=== PATIENT | male | born 1930 | race Caucasian/White ===

== ENCOUNTER 2017-10-25 10:19 | Observation (INO) | payer MEDICARE, OTHER ==
[2017-10-25] MEDS ORDERED: Sodium Chloride 0.9% 10 ML Syringe FLUSH PRN (10:28)
[2017-10-25 11:23] LABS: CHLORIDE,CL 108 mmol/L (98-107); SODIUM,NA 143 mmol/L (136-145)
[2017-10-25] MEDS ORDERED: cefTRIAXone 2 GM Vial IVPUSH ONE (11:27)
[2017-10-25] MEDS ORDERED: Azithromycin 500 MG in Sodium Chloride 0.9% 250 ML IV ONE (11:27)
--- NOTE | 2017-10-25 12:53 | EDM.PDOC ---
ED HPI GENERAL MEDICAL PROBLEM - General Chief Complaint: General Time Seen by Provider: 10/25/17 10:19 Source of Information: Reports: Patient History Limitations: Reports: No Limitations - History of Present Illness INITIAL COMMENTS - FREE TEXT/NARRATIVE: Pt. presents to ER with 1 day history of confusion, weakness, and increased tearfulness. He apparently was beginning to experience these symptoms somewhat last evening, but the symptoms were much more pronounced this AM. He was dropping things at breakfast and was more emotional than normal. He has not been experiencing any fever or chills. He has a history of COPD but denies any increased dyspnea. Onset Date: 10/24/17 Location: Reports: Generalized - Related Data Allergies Allergy/AdvReac Type Severity Reaction Status Date / Time No Known Drug Allergies Allergy Other Verified 10/25/17 10:36 Home Meds: Home Meds Furosemide [Lasix] 20 mg PO DAILY 05/15/14 [History] Meclizine [Antivert] 25 mg PO TID PRN 05/15/14 [History] Multivitamin [Daily Multiple Vitamin] 1 tab PO DAILY 05/15/14 [History] Simvastatin [Zocor] 20 mg PO BEDTIME 05/15/14 [History] Tiotropium [Spiriva HandiHaler] 18 mcg INH DAILY 05/15/14 [History] Acetaminophen/HYDROcodone [[place] 325-5 MG] 1 tab PO Q4HR PRN #45 tablet [Rx] Metoprolol Tartrate [Lopressor] 25 mg PO Q12HR #60 tablet 05/23/14 [Rx] Rivaroxaban [Xarelto] 20 mg PO DAILY #30 tablet 05/23/14 [Rx] Aspirin 81 mg PO DAILY 10/25/17 [History] Loratadine [Claritin] 10 mg PO DAILY 10/25/17 [History] Past Medical History Cardiovascular History: Reports: Afib, High Cholesterol Respiratory History: Reports: COPD Gastrointestinal History: Reports: Diverticulosis Musculoskeletal History: Reports: Arthritis, Osteoarthritis - Past Surgical History GI Surgical History: Reports: Hernia Repair/Other Social & Family History - Tobacco Use Smoking Status *Q: Unknown Ever Smoked - Recreational Drug Use Recreational Drug Use: No ED ROS GENERAL - Review of Systems Review Of Systems: See Below Constitutional: Reports: Malaise, Fatigue HEENT: Reports: No Symptoms Respiratory: Reports: Shortness of Breath, Cough Cardiovascular: Reports: No Symptoms Endocrine: Reports: No Symptoms GI/Abdominal: Reports: No Symptoms : Reports: No Symptoms Musculoskeletal: Reports: No Symptoms Skin: Reports: No Symptoms Neurological: Reports: No Symptoms, Confusion Psychiatric: Reports: No Symptoms Hematologic/Lymphatic: Reports: No Symptoms Immunologic: Reports: No Symptoms ED EXAM, GENERAL - Physical Exam Exam: See Below General Appearance: Alert, WD/WN, No Apparent Distress Eye Exam: Bilateral Eye: EOMI, Normal Fundi, Normal Inspection, PERRL Ears: Normal External Exam, Normal Canal, Hearing Grossly Normal, Normal TMs Nose: Normal Inspection, Normal Mucosa, No Blood Throat/Mouth: Normal Inspection, Normal Lips, Normal Teeth, Normal Gums, Normal Oropharynx, Normal Voice, No Airway Compromise Respiratory/Chest: No Respiratory Distress, Chest Non-Tender, Decreased Breath Sounds, Crackles, Rhonchi Cardiovascular: Normal Peripheral Pulses, Regular Rate, Rhythm, No Edema, No JVD. No: Diastolic Murmur Peripheral Pulses: 3+: Radial (L), Radial (R) GI/Abdominal: Normal Bowel Sounds, Soft, Non-Tender, No Organomegaly, No Distention, No Abnormal Bruit, No Mass (Male) Exam: Deferred Rectal (Males) Exam: Deferred Back Exam: Normal Inspection, Full Range of Motion, NT Extremities: Normal Inspection, Normal Range of Motion, Non-Tender, Normal Capillary Refill, No Pedal Edema Neurological: Alert, Oriented, CN II-XII Intact, Normal Cognition, Normal Gait, Normal Reflexes, No Motor/Sensory Deficits, Slow to Respond Psychiatric: Normal Affect, Normal Mood Skin Exam: Warm, Dry, Intact, Normal Color, No Rash Lymphatic: No Adenopathy EKG INTERPRETATION Rhythm: NSR [place]: Normal P-Wave: Present QRS: Normal ST-T: Normal QT: Normal Course - Vital Signs Last Recorded V/S: Last Vital Signs Temp 36.2 C 10/25/17 10:19 Pulse 81 10/25/17 11:35 Resp 18 10/25/17 11:35 BP 136/73 10/25/17 11:35 Pulse Ox 90 L 10/25/17 11:35 - Orders/Labs/Meds Orders: Active Orders 24 hr Category Date Time Status Patient Status [ADT] Routine ADT 10/25/17 11:41 Active EKG Documentation Completion [RC] STAT Care 10/25/17 10:28 Active Chest 1V Frontal [CR] Stat Exams 10/25/17 10:28 Taken Head wo Cont [CT] Stat Exams 10/25/17 10:28 Taken UA W/MICROSCOPIC [URIN] Stat Lab 10/25/17 10:27 Ordered Sodium Chloride 0.9% [Saline Flush] Med 10/25/17 10:28 Active 10 ml FLUSH ASDIRECTED PRN Peripheral IV Insertion Adult [OM.PC] Routine Oth 10/25/17 10:28 Ordered Medication Orders Ceftriaxone Sodium (Rocephin) 1 gm IVPUSH DAILY@1100 [facility] Enoxaparin Sodium (Lovenox) 40 mg SUBCUT DAILY [facility] Azithromycin 500 mg/ Sodium (Chloride) 250 mls @ 250 mls/hr IV DAILY@1100 [facility] Potassium Chloride/Dextrose/Sod Cl (D5 1/2 Ns W/ 20 Meq/L Kcl) 1,000 mls @ 75 mls/hr IV ASDIRECTED [facility] Sodium Chloride (Saline Flush) 10 ml FLUSH ASDIRECTED PRN PRN Reason: Keep Vein Open Labs: Laboratory Tests 10/25/17 10/25/17 10/25/17 Range/Units 10:42 10:42 10:42 WBC 7.6 (4.0-10.0) x10^3/uL RBC 5.05 (4.5-6.0) x10^6/uL Hgb 15.2 D (14.0-18.0) g/dL Hct 45.6 (40.0-52.0) % MCV 90.3 (78.0-93.0) fL MCH 30.1 (26.0-32.0) pg MCHC 33.3 (32.0-36.0) g/dL RDW Coeff of German 14.7 (10.0-15.0) % Plt Count 205 D (130-400) x10^3/uL Neut % (Auto) 60.0 (50.0-80.0) % Lymph % (Auto) 24.0 L (25.0-50.0) % [place] % (Auto) 11.4 H (2.0-11.0) % Eos % (Auto) 4.3 H (0.0-4.0) % Baso % (Auto) 0.3 (0.2-1.2) % PT 10.6 (9.8-11.8) SEC INR 1.0 L (2.0-3.5) Sodium 143 (136-145) mmol/L Potassium 4.1 (3.5-5.1) mmol/L Chloride 108 H (98-107) mmol/L Carbon Dioxide 22 (21-32) mmol/L BUN 18 (7-18) mg/dL Creatinine 1.2 (0.70-1.30) mg/dL Est Cr Clr Drug Dosing TNP Estimated GFR (MDRD) 57 Glucose 94 (74-106) mg/dL Calcium 8.8 (8.5-10.1) mg/dL Corrected Calcium 8.88 (8.5-10.1) mg/dL Total Bilirubin 0.6 (0.2-1.0) mg/dL AST 19 (15-37) U/L ALT 20 (16-63) U/L Alkaline Phosphatase 101 (46-116) U/L Troponin I < 0.017 (<=0.056) ng/mL C-Reactive Protein 0.7 (<=0.9) mg/dL NT-Pro-B Natriuret Pep (<=450) pg/mL Total Protein 7.4 (6.4-8.2) g/dL Albumin 3.9 (3.4-5.0) g/dL Globulin 3.5 Albumin/Globulin Ratio 1.11 TSH, Ultra Sensitive 1.946 (0.358-3.74) uIU/mL Ethyl Alcohol < 3 (0-3) mg/dL 10/25/17 Range/Units 10:42 WBC (4.0-10.0) x10^3/uL RBC (4.5-6.0) x10^6/uL Hgb (14.0-18.0) g/dL Hct (40.0-52.0) % MCV (78.0-93.0) fL MCH (26.0-32.0) pg MCHC (32.0-36.0) g/dL RDW Coeff of German (10.0-15.0) % Plt Count (130-400) x10^3/uL Neut % (Auto) (50.0-80.0) % Lymph % (Auto) (25.0-50.0) % [place] % (Auto) (2.0-11.0) % Eos % (Auto) (0.0-4.0) % Baso % (Auto) (0.2-1.2) % PT (9.8-11.8) SEC INR (2.0-3.5) Sodium (136-145) mmol/L Potassium (3.5-5.1) mmol/L Chloride (98-107) mmol/L Carbon Dioxide (21-32) mmol/L BUN (7-18) mg/dL Creatinine (0.70-1.30) mg/dL Est Cr Clr Drug Dosing Estimated GFR (MDRD) Glucose (74-106) mg/dL Calcium (8.5-10.1) mg/dL Corrected Calcium (8.5-10.1) mg/dL Total Bilirubin (0.2-1.0) mg/dL AST (15-37) U/L ALT (16-63) U/L Alkaline Phosphatase (46-116) U/L Troponin I (<=0.056) ng/mL C-Reactive Protein (<=0.9) mg/dL NT-Pro-B Natriuret Pep 70 (<=450) pg/mL Total Protein (6.4-8.2) g/dL Albumin (3.4-5.0) g/dL Globulin Albumin/Globulin Ratio TSH, Ultra Sensitive (0.358-3.74) uIU/mL Ethyl Alcohol (0-3) mg/dL Meds: Medications Generic Name Dose Route Start Last Admin Trade Name Freq PRN Reason Stop Dose Admin Ceftriaxone Sodium 1 gm 10/26/17 11:00 Rocephin IVPUSH DAILY@1100 [facility] Enoxaparin Sodium 40 mg 10/25/17 12:45 Lovenox SUBCUT DAILY [facility] Azithromycin 500 mg/ Sodium 250 mls @ 250 mls/hr 10/26/17 11:00 Chloride IV DAILY@1100 [facility] Potassium Chloride/Dextrose/Sod Cl 1,000 mls @ 75 mls/hr 10/25/17 12:45 D5 1/2 Ns W/ 20 Meq/L Kcl IV ASDIRECTED [facility] Sodium Chloride 10 ml 10/25/17 10:28 Saline Flush FLUSH ASDIRECTED PRN Keep Vein Open Discontinued Medications Generic Name Dose Route Start Last Admin Trade Name Freq PRN Reason Stop Dose Admin Ceftriaxone Sodium 2 gm 10/25/17 11:27 10/25/17 11:52 Rocephin IVPUSH 10/25/17 11:28 2 gm ONETIME ONE Administration Azithromycin 500 mg/ Sodium 250 mls @ 250 mls/hr 10/25/17 11:27 10/25/17 11: 58 Chloride IV 10/25/17 12:26 250 mls/hr ONETIME ONE Administration - Radiology Interpretation Free Text/Narrative:: CT brain negative for acute pathology Portable CXR shows LLL infiltrate Departure - Departure Time of Disposition: 12:10 Disposition: Refer to Observation Clinical Impression: Pneumonia Community acquired pneumonia Qualifiers: Laterality: left Lung location: lower lobe of lung Qualified Code(s): J18.1 - Lobar pneumonia, unspecified organism - Discharge Information - My Orders Last 24 Hours: My Active Orders 10/25/17 10:27 UA W/MICROSCOPIC [URIN] Stat 10/25/17 10:28 EKG Documentation Completion [RC] STAT Chest 1V Frontal [CR] Stat Head wo Cont [CT] Stat Sodium Chloride 0.9% [Saline Flush] 10 ml FLUSH ASDIRECTED PRN Peripheral IV Insertion Adult [OM.PC] Routine 10/25/17 11:41 Patient Status [ADT] Routine - Assessment/Plan Last 24 Hours: My Active Orders 10/25/17 10:27 UA W/MICROSCOPIC [URIN] Stat 10/25/17 10:28 EKG Documentation Completion [RC] STAT Chest 1V Frontal [CR] Stat Head wo Cont [CT] Stat Sodium Chloride 0.9% [Saline Flush] 10 ml FLUSH ASDIRECTED PRN Peripheral IV Insertion Adult [OM.PC] Routine 10/25/17 11:41 Patient Status [ADT] Routine
[2017-10-25] MEDS: D5 1/2 NS w/ 20 mEq/L KCl 1,000 ML IV SCH (13:01)
[2017-10-25] MEDS: Enoxaparin 40 MG/0.4 ML Syringe SUBCUT SCH (13:02)
[2017-10-25] MEDS ORDERED: Simvastatin 20 MG Tab PO SCH (20:00)
[2017-10-26] MEDS ORDERED: methylPREDNISolone Sodium Succinate 125 MG/2 ML SDV IVPUSH ONE (00:29)
[2017-10-26] MEDS: D5 1/2 NS w/ 20 mEq/L KCl 1,000 ML IV SCH (01:00)
[2017-10-26] MEDS ORDERED: Calcium Carbonate 750 MG Tab.Chew PO ONE (01:07)
[2017-10-26] MEDS: Ondansetron 4 MG/2 ML SDV IVPUSH PRN ×2 (01:21→06:38)
[2017-10-26] MEDS ORDERED: Pantoprazole 40 MG Vial IVPUSH ONE (06:25)
[2017-10-26 07:28] LABS: CHLORIDE,CL 107 mmol/L (98-107); SODIUM,NA 142 mmol/L (136-145)
[2017-10-26] MEDS ORDERED: Multivitamin, Stress Formula with Zinc Tab PO SCH (08:00)
[2017-10-26] MEDS ORDERED: Tiotropium Inhaler 18 MCG Inhalation Powder Cap Kit of 5 INH SCH (08:00)
[2017-10-26] MEDS ORDERED: Aspirin 81 MG Tab.EC PO SCH (08:00)
[2017-10-26] MEDS ORDERED: Loratadine 10 MG Tab PO SCH (08:00)
[2017-10-26] MEDS: Enoxaparin 40 MG/0.4 ML Syringe SUBCUT SCH (09:14)
--- NOTE | 2017-10-26 11:23 | PCM.PN ---
- General Info Date of Service: 10/26/17 Admission Dx/Problem (Free Text): left lower lobe pneumonia Functional Status: Reports: Pain Controlled, New Symptoms (nausea and vomiting) - Review of Systems General: Reports: No Symptoms HEENT: Reports: No Symptoms Pulmonary: Reports: Shortness of Breath Cardiovascular: Reports: No Symptoms Gastrointestinal: Reports: Nausea, Vomiting Genitourinary: Reports: No Symptoms Musculoskeletal: Reports: No Symptoms Skin: Reports: No Symptoms Neurological: Reports: No Symptoms Psychiatric: Reports: No Symptoms - Patient Data Vitals - Most Recent: Last Vital Signs Temp 37.2 C 10/26/17 10:00 Pulse 106 H 10/26/17 10:00 Resp 24 H 10/26/17 10:00 BP 154/89 H 10/26/17 10:00 Pulse Ox 90 L 10/26/17 11:11 Weight - Most Recent: 92.215 kg I&O - Last 24 Hours: Intake & Output 10/25/17 10/26/17 10/26/17 22:59 06:59 14:59 Intake Total 1388 1140 0 Output Total 300 325 Balance 1088 1140 -325 Lab Results Last 24 Hours: Laboratory Results - last 24 hr 10/25/17 10/26/17 10/26/17 Range/Units 14:36 07:01 07:01 WBC 8.3 (4.0-10.0) x10^3/uL RBC 5.17 (4.5-6.0) x10^6/uL Hgb 15.6 (14.0-18.0) g/dL Hct 46.4 (40.0-52.0) % MCV 89.7 (78.0-93.0) fL MCH 30.2 (26.0-32.0) pg MCHC 33.6 (32.0-36.0) g/dL RDW Coeff of [place] 14.8 (10.0-15.0) % Plt Count 223 (130-400) x10^3/uL Neut % (Auto) 89.5 H (50.0-80.0) % Lymph % (Auto) 9.9 L (25.0-50.0) % [place] % (Auto) 0.5 L (2.0-11.0) % Eos % (Auto) 0.0 (0.0-4.0) % Baso % (Auto) 0.1 L (0.2-1.2) % Sodium 142 (136-145) mmol/L Potassium 4.2 (3.5-5.1) mmol/L Chloride 107 (98-107) mmol/L Carbon Dioxide 22 (21-32) mmol/L BUN 14 (7-18) mg/dL Creatinine 1.0 (0.70-1.30) mg/dL Est Cr Clr Drug Dosing 56.48 mL/min Estimated GFR (MDRD) > 60 Glucose 176 H (74-106) mg/dL Lactic Acid (0.4-2.0) mmol/L Calcium 9.0 (8.5-10.1) mg/dL Urine Color Yellow (YELLOW) Urine Appearance Clear (CLEAR) Urine pH 5.5 (5.0-8.0) Ur Specific [place] 1.020 Urine Protein Negative (NEGATIVE) mg/dL Urine Glucose (UA) Negative (NEGATIVE) mg/dL Urine Ketones Trace H (NEGATIVE) mg/dL Urine Occult Blood Negative (NEGATIVE) Urine Nitrite Negative (NEGATIVE) Urine Bilirubin Negative (NEGATIVE) Urine Urobilinogen 0.2 (0.2) EU/dL Ur Leukocyte Esterase Small H (NEGATIVE) Urine RBC Not seen (NOT SEEN) /HPF Urine WBC 0-5 (NOT SEEN) /HPF Ur Squamous Epith Cells Not seen (NEGATIVE) /HPF Amorphous Sediment Not seen Urine Mucus Not seen (NEGATIVE) /LPF 10/26/17 Range/Units 09:31 WBC (4.0-10.0) x10^3/uL RBC (4.5-6.0) x10^6/uL Hgb (14.0-18.0) g/dL Hct (40.0-52.0) % MCV (78.0-93.0) fL MCH (26.0-32.0) pg MCHC (32.0-36.0) g/dL RDW Coeff of [place] (10.0-15.0) % Plt Count (130-400) x10^3/uL Neut % (Auto) (50.0-80.0) % Lymph % (Auto) (25.0-50.0) % [place] % (Auto) (2.0-11.0) % Eos % (Auto) (0.0-4.0) % Baso % (Auto) (0.2-1.2) % Sodium (136-145) mmol/L Potassium (3.5-5.1) mmol/L Chloride (98-107) mmol/L Carbon Dioxide (21-32) mmol/L BUN (7-18) mg/dL Creatinine (0.70-1.30) mg/dL Est Cr Clr Drug Dosing mL/min Estimated GFR (MDRD) Glucose (74-106) mg/dL Lactic Acid 1.1 (0.4-2.0) mmol/L Calcium (8.5-10.1) mg/dL Urine Color (YELLOW) Urine Appearance (CLEAR) Urine pH (5.0-8.0) Ur Specific [place] Urine Protein (NEGATIVE) mg/dL Urine Glucose (UA) (NEGATIVE) mg/dL Urine Ketones (NEGATIVE) mg/dL Urine Occult Blood (NEGATIVE) Urine Nitrite (NEGATIVE) Urine Bilirubin (NEGATIVE) Urine Urobilinogen (0.2) EU/dL Ur Leukocyte Esterase (NEGATIVE) Urine RBC (NOT SEEN) /HPF Urine WBC (NOT SEEN) /HPF Ur Squamous Epith Cells (NEGATIVE) /HPF Amorphous Sediment Urine Mucus (NEGATIVE) /LPF Med Orders - Current: Current Medications Aspirin (Halfprin) 81 mg PO DAILY [facility] Last Admin: 10/26/17 09:13 Dose: Not Given Ceftriaxone Sodium (Rocephin) 1 gm IVPUSH DAILY@1100 [facility] Enoxaparin Sodium (Lovenox) 40 mg SUBCUT DAILY [facility] Last Admin: 10/26/17 09:14 Dose: Not Given Azithromycin 500 mg/ Sodium (Chloride) 250 mls @ 250 mls/hr IV DAILY@1100 [facility] Potassium Chloride/Dextrose/Sod Cl (D5 1/2 Ns W/ 20 Meq/L Kcl) 1,000 mls @ 75 mls/hr IV ASDIRECTED [facility] Last Admin: 10/26/17 01:00 Dose: 75 mls/hr Loratadine (Claritin) 10 mg PO DAILY [facility] Last Admin: 10/26/17 09:13 Dose: Not Given Ondansetron HCl (Zofran) 4 mg IVPUSH Q8H PRN PRN Reason: Nausea Last Admin: 10/26/17 06:38 Dose: 4 mg Simvastatin (Zocor) 20 mg PO BEDTIME [facility] Last Admin: 10/25/17 19:54 Dose: 20 mg Sodium Chloride (Saline Flush) 10 ml FLUSH ASDIRECTED PRN PRN Reason: Keep Vein Open Tiotropium [place] (Spiriva Handihaler) 18 mcg INH DAILY [facility] Last Admin: 10/26/17 09:26 Dose: Not Given Vitamin B Complex/Vit C/Vit E/Zinc (Stress Formula With Zinc) 1 tab PO DAILY [facility] Last Admin: 10/26/17 09:14 Dose: Not Given Discontinued Medications Calcium Carbonate/Glycine (Tums Extra Strength) 750 mg PO ONETIME ONE Stop: 10/26/17 01:08 Last Admin: 10/26/17 01:21 Dose: 750 mg Ceftriaxone Sodium (Rocephin) 2 gm IVPUSH ONETIME ONE Stop: 10/25/17 11:28 Last Admin: 10/25/17 11:52 Dose: 2 gm Azithromycin 500 mg/ Sodium (Chloride) 250 mls @ 250 mls/hr IV ONETIME ONE Stop: 10/25/17 12:26 Last Admin: 10/25/17 11:58 Dose: 250 mls/hr Methylprednisolone Sodium Succinate (Solu-Medrol) 125 mg IVPUSH ONETIME ONE Stop: 10/26/17 00:30 Last Admin: 10/26/17 01:00 Dose: 125 mg Pantoprazole Sodium (Protonix Iv) 40 mg IVPUSH ONETIME ONE Stop: 10/26/17 06:26 Last Admin: 10/26/17 06:39 Dose: 40 mg - Exam Quality Assessment: Supplemental Oxygen General: Alert, Oriented, Cooperative, No Acute Distress HEENT: Pupils Equal Neck: Supple Lungs: Decreased Breath Sounds, Other (left lower lobe rales) GI/Abdominal Exam: Normal Bowel Sounds, Non-Tender, No Organomegaly, No Distention, No Mass. No: Soft (firm) Extremities: Normal Inspection, Normal Range of Motion, Non-Tender, No Pedal Edema, Normal Capillary Refill Peripheral Pulses: 2+: Posterior Tibial (L), Posterior Tibial (R), Dorsalis Pedis (L), Dorsalis Pedis (R) Skin: Warm, Dry, Intact Neurological: No New Focal Deficit Psy/Mental Status: Alert, Normal Affect, Normal Mood - Problem List & Annotations (1) GI bleeding SNOMED Code(s): 84680830 Code(s): K92.2 - GASTROINTESTINAL HEMORRHAGE, UNSPECIFIED Status: Acute Priority: Medium Current Visit: Yes Qualifiers: GI bleed type/associated pathology: unspecified gastrointestinal hemorrhage type Qualified Code(s): K92.2 - Gastrointestinal hemorrhage, unspecified (2) Community acquired pneumonia SNOMED Code(s): 678800843 Code(s): J18.9 - PNEUMONIA, UNSPECIFIED ORGANISM Status: Acute Priority: Medium Current Visit: Yes Qualifiers: Laterality: left Lung location: lower lobe of lung Qualified Code(s): J18.1 - Lobar pneumonia, unspecified organism - Problem List Review Problem List Initiated/Reviewed/Updated: Yes - My Orders Last 24 Hours: My Active Orders 10/26/17 01:07 Ondansetron [Zofran] 4 mg IVPUSH Q8H PRN - Plan Plan:: Discussion held with Dr. Reddy, hospitalist at [facility] in [place]. She has accepted the patient and we await EMS transportation. Room 838
[2017-10-26] MEDS: cefTRIAXone 1 GM Vial IVPUSH SCH ×2 (11:25→11:39)
[2017-10-26] MEDS: Azithromycin 500 MG in Sodium Chloride 0.9% 250 ML IV SCH ×2 (11:26→11:40)
--- NOTE | 2017-10-26 11:29 | PCM.DCSUM1 ---
Discharge Summary - Hospital Course HPI Initial Comments: Initially seen by DAYA Paredes for complaints of confusion, weakness and found to have left lower lobe pneumonia. Was admitted yesterday afternoon. Normal white count, lactic acid normal, CRP normal. Hemoglobin normal levels. 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 He did not use his call light and was found to have vomited on himself. His next emesis was tested for occult blood and was positive. Coffee ground emesis has happened on several occasions this morning. Protonix and zofran have been given IV. - Discharge Data Discharge Date: 10/26/17 Discharge Disposition: DC/Tfer to [facility] Condition: Good - Discharge Diagnosis/Problem(s) (1) GI bleeding SNOMED Code(s): 45667687 ICD Code: K92.2 - GASTROINTESTINAL HEMORRHAGE, UNSPECIFIED Status: Acute Priority: Medium Current Visit: Yes Qualifiers: GI bleed type/associated pathology: unspecified gastrointestinal hemorrhage type Qualified Code(s): K92.2 - Gastrointestinal hemorrhage, unspecified (2) Community acquired pneumonia SNOMED Code(s): 143583206 ICD Code: J18.9 - PNEUMONIA, UNSPECIFIED ORGANISM Status: Acute Priority : Medium Current Visit: Yes Qualifiers: Laterality: left Lung location: lower lobe of lung Qualified Code(s): J18.1 - Lobar pneumonia, unspecified organism - Discharge Plan Home Medications: Home Meds Multivitamin [Daily Multiple Vitamin] 1 tab PO DAILY 05/15/14 [History] Simvastatin [Zocor] 20 mg PO BEDTIME 05/15/14 [History] Tiotropium [Spiriva HandiHaler] 18 mcg INH DAILY 05/15/14 [History] Aspirin [Low Dose Aspirin EC] 81 mg PO DAILY 10/25/17 [History] Loratadine [Claritin] 10 mg PO DAILY 10/25/17 [History] Forms: ED Department Discharge, Interfacility Transfer EMTALA Referrals: Walter Mackey MD [Primary Care Provider] - - Discharge Summary/Plan Comment DC Time >30 min.: Yes Discharge Summary/Plan Comment: Transfer to [facility] for further investigation into the bloody emesis. - Patient Data Vitals - Most Recent: Last Vital Signs Temp 37.2 C 10/26/17 10:00 Pulse 106 H 10/26/17 10:00 Resp 24 H 10/26/17 10:00 BP 154/89 H 10/26/17 10:00 Pulse Ox 90 L 10/26/17 11:11 Weight - Most Recent: 92.215 kg I&O - Last 24 hours: Intake & Output 10/25/17 10/26/17 10/26/17 22:59 06:59 14:59 Intake Total 1388 1140 0 Output Total 300 325 Balance 1088 1140 -325 Lab Results - Last 24 hrs: Laboratory Results - last 24 hr 10/25/17 10/26/17 10/26/17 Range/Units 14:36 07:01 07:01 WBC 8.3 (4.0-10.0) x10^3/uL RBC 5.17 (4.5-6.0) x10^6/uL Hgb 15.6 (14.0-18.0) g/dL Hct 46.4 (40.0-52.0) % MCV 89.7 (78.0-93.0) fL MCH 30.2 (26.0-32.0) pg MCHC 33.6 (32.0-36.0) g/dL RDW Coeff of German 14.8 (10.0-15.0) % Plt Count 223 (130-400) x10^3/uL Neut % (Auto) 89.5 H (50.0-80.0) % Lymph % (Auto) 9.9 L (25.0-50.0) % [place] % (Auto) 0.5 L (2.0-11.0) % Eos % (Auto) 0.0 (0.0-4.0) % Baso % (Auto) 0.1 L (0.2-1.2) % Sodium 142 (136-145) mmol/L Potassium 4.2 (3.5-5.1) mmol/L Chloride 107 (98-107) mmol/L Carbon Dioxide 22 (21-32) mmol/L BUN 14 (7-18) mg/dL Creatinine 1.0 (0.70-1.30) mg/dL Est Cr Clr Drug Dosing 56.48 mL/min Estimated GFR (MDRD) > 60 Glucose 176 H (74-106) mg/dL Lactic Acid (0.4-2.0) mmol/L Calcium 9.0 (8.5-10.1) mg/dL Urine Color Yellow (YELLOW) Urine Appearance Clear (CLEAR) Urine pH 5.5 (5.0-8.0) Ur Specific [place] 1.020 Urine Protein Negative (NEGATIVE) mg/dL Urine Glucose (UA) Negative (NEGATIVE) mg/dL Urine Ketones Trace H (NEGATIVE) mg/dL Urine Occult Blood Negative (NEGATIVE) Urine Nitrite Negative (NEGATIVE) Urine Bilirubin Negative (NEGATIVE) Urine Urobilinogen 0.2 (0.2) EU/dL Ur Leukocyte Esterase Small H (NEGATIVE) Urine RBC Not seen (NOT SEEN) /HPF Urine WBC 0-5 (NOT SEEN) /HPF Ur Squamous Epith Cells Not seen (NEGATIVE) /HPF Amorphous Sediment Not seen Urine Mucus Not seen (NEGATIVE) /LPF 10/26/17 Range/Units 09:31 WBC (4.0-10.0) x10^3/uL RBC (4.5-6.0) x10^6/uL Hgb (14.0-18.0) g/dL Hct (40.0-52.0) % MCV (78.0-93.0) fL MCH (26.0-32.0) pg MCHC (32.0-36.0) g/dL RDW Coeff of [place] (10.0-15.0) % Plt Count (130-400) x10^3/uL Neut % (Auto) (50.0-80.0) % Lymph % (Auto) (25.0-50.0) % [place] % (Auto) (2.0-11.0) % Eos % (Auto) (0.0-4.0) % Baso % (Auto) (0.2-1.2) % Sodium (136-145) mmol/L Potassium (3.5-5.1) mmol/L Chloride (98-107) mmol/L Carbon Dioxide (21-32) mmol/L BUN (7-18) mg/dL Creatinine (0.70-1.30) mg/dL Est Cr Clr Drug Dosing mL/min Estimated GFR (MDRD) Glucose (74-106) mg/dL Lactic Acid 1.1 (0.4-2.0) mmol/L Calcium (8.5-10.1) mg/dL Urine Color (YELLOW) Urine Appearance (CLEAR) Urine pH (5.0-8.0) Ur Specific [place] Urine Protein (NEGATIVE) mg/dL Urine Glucose (UA) (NEGATIVE) mg/dL Urine Ketones (NEGATIVE) mg/dL Urine Occult Blood (NEGATIVE) Urine Nitrite (NEGATIVE) Urine Bilirubin (NEGATIVE) Urine Urobilinogen (0.2) EU/dL Ur Leukocyte Esterase (NEGATIVE) Urine RBC (NOT SEEN) /HPF Urine WBC (NOT SEEN) /HPF Ur Squamous Epith Cells (NEGATIVE) /HPF Amorphous Sediment Urine Mucus (NEGATIVE) /LPF Med Orders - Current: Current Medications Aspirin (Halfprin) 81 mg PO DAILY [facility] Last Admin: 10/26/17 09:13 Dose: Not Given Ceftriaxone Sodium (Rocephin) 1 gm IVPUSH DAILY@1100 [facility] Enoxaparin Sodium (Lovenox) 40 mg SUBCUT DAILY [facility] Last Admin: 10/26/17 09:14 Dose: Not Given Azithromycin 500 mg/ Sodium (Chloride) 250 mls @ 250 mls/hr IV DAILY@1100 [facility] Potassium Chloride/Dextrose/Sod Cl (D5 1/2 Ns W/ 20 Meq/L Kcl) 1,000 mls @ 75 mls/hr IV ASDIRECTED [facility] Last Admin: 10/26/17 01:00 Dose: 75 mls/hr Loratadine (Claritin) 10 mg PO DAILY [facility] Last Admin: 10/26/17 09:13 Dose: Not Given Ondansetron HCl (Zofran) 4 mg IVPUSH Q8H PRN PRN Reason: Nausea Last Admin: 10/26/17 06:38 Dose: 4 mg Simvastatin (Zocor) 20 mg PO BEDTIME [facility] Last Admin: 10/25/17 19:54 Dose: 20 mg Sodium Chloride (Saline Flush) 10 ml FLUSH ASDIRECTED PRN PRN Reason: Keep Vein Open Tiotropium [place] (Spiriva Handihaler) 18 mcg INH DAILY [facility] Last Admin: 10/26/17 09:26 Dose: Not Given Vitamin B Complex/Vit C/Vit E/Zinc (Stress Formula With Zinc) 1 tab PO DAILY [facility] Last Admin: 10/26/17 09:14 Dose: Not Given Discontinued Medications Calcium Carbonate/Glycine (Tums Extra Strength) 750 mg PO ONETIME ONE Stop: 10/26/17 01:08 Last Admin: 10/26/17 01:21 Dose: 750 mg Ceftriaxone Sodium (Rocephin) 2 gm IVPUSH ONETIME ONE Stop: 10/25/17 11:28 Last Admin: 10/25/17 11:52 Dose: 2 gm Azithromycin 500 mg/ Sodium (Chloride) 250 mls @ 250 mls/hr IV ONETIME ONE Stop: 10/25/17 12:26 Last Admin: 10/25/17 11:58 Dose: 250 mls/hr Methylprednisolone Sodium Succinate (Solu-Medrol) 125 mg IVPUSH ONETIME ONE Stop: 10/26/17 00:30 Last Admin: 10/26/17 01:00 Dose: 125 mg Pantoprazole Sodium (Protonix Iv) 40 mg IVPUSH ONETIME ONE Stop: 10/26/17 06:26 Last Admin: 10/26/17 06:39 Dose: 40 mg *Q Meaningful Use (DIS) - VTE *Q VTE Criteria *Q: - Stroke *Q Stroke Criteria *Q: - AMI *Q AMI Criteria *Q:
[2017-10-26 11:30] VITALS: BP 158/92
== END 2017-10-26 12:05 | disposition short-term general hospital (02) ==
LOC: VM.ED 10:19 → VM.MS 11:41
PROVIDERS: ADMIT Physician Assistant; ATTEND Physician Assistant
DX: K92.2 Gastrointestinal hemorrhage, unspecified (principal); J18.1 Lobar pneumonia, unspecified organism; E78.00 Pure hypercholesterolemia, unspecified; J44.9 Chronic obstructive pulmonary disease, unspecified; Z79.82 Long term (current) use of aspirin; Z79.899 Other long term (current) drug therapy
CPT/HCPCS: 36415; 70450; 71045; 80048; 80053; 81001; 83605; 83880; 84443; 84484; 85025; 85610; 86140; 93005; 93010; 94760; 96374; 96375; 97161-GP; 99284-GF-25; 99285; A9270-GY; C9113; G0480; J0456; J0696; J1650; J2405; J2930; J3480; J7050

== ENCOUNTER 2019-04-20 20:49 | Inpatient (IN) | payer MEDICARE, OTHER ==
[2019-04-20] MEDS ORDERED: Sodium Chloride 0.9% 10 ML Syringe FLUSH PRN (20:53)
--- NOTE | 2019-04-20 21:07 | EDM.PDOC ---
ED HPI GENERAL MEDICAL PROBLEM - General Stated Complaint: NOT FEELING WELL Time Seen by Provider: 04/20/19 20:49 Source of Information: Reports: Patient, EMS, Family History Limitations: Reports: No Limitations - History of Present Illness INITIAL COMMENTS - FREE TEXT/NARRATIVE: Pt. presents to ER via EMS with weakness, fever, and shortness of breath. Pt. states that he was starting to feel poorly around noon and the symptoms progressively got worse throughout the afternoon and evening. He is now unable to stand due to weakness. Staff at [facility] stated to EMS that pt. fever was 105 degrees F. It was 100.7 on arrival to ED. He has not taken any ibuprofen of tylenol. Pt. was hospitalized with CAP in October of last year. He is a patient of Dr. Mackey. Pt. complains of some increased shortness of breath. He has a history of COPD. He is only on Spiriva. Does not appear to be on any inhaler or nebulizer treatments. He denies any cough, productive or otherwise. He denies any dysuria. No frequency, hesitancy or urgency. No nausea, vomiting, or diarrhea. Denies any abdominal pain. No headache. Denies neck stiffness. Denies any numbness/tingling in extremities. Onset: Today Duration: Getting Worse Location: Reports: Chest, Generalized Worsens with: Reports: Movement Associated Symptoms: Reports: Malaise, Shortness of Breath, Weakness - Related Data Allergies Allergy/AdvReac Type Severity Reaction Status Date / Time No Known Drug Allergies Allergy Other Verified 10/25/17 10:36 Home Meds: Home Meds Multivitamin [Daily Multiple Vitamin] 1 tab PO DAILY 05/15/14 [History] Simvastatin [Zocor] 20 mg PO BEDTIME 05/15/14 [History] Tiotropium [Spiriva HandiHaler] 18 mcg INH DAILY 05/15/14 [History] Aspirin [Low Dose Aspirin EC] 81 mg PO DAILY 10/25/17 [History] Loratadine [Claritin] 10 mg PO DAILY 10/25/17 [History] Past Medical History HEENT History: Reports: Hard of Hearing, Other (See Below) Other HEENT History: uses hearing aid Cardiovascular History: Reports: Afib, High Cholesterol Respiratory History: Reports: COPD Gastrointestinal History: Reports: Diverticulosis Genitourinary History: Reports: None Musculoskeletal History: Reports: Arthritis, Osteoarthritis Neurological History: Reports: None Dermatologic History: Reports: Other (See Below) Other Dermatologic History: basal cell carcinoma - Past Surgical History GI Surgical History: Reports: Hernia Repair/Other Social & Family History - Family History Family Medical History: Noncontributory HEENT: Reports: Hearing Impairment Cardiac: Reports: Afib GI: Reports: Diverticulitis - Caffeine Use Caffeine Use: Reports: Coffee ED ROS GENERAL - Review of Systems Review Of Systems: See Below Constitutional: Reports: Fever, Chills, Malaise, Weakness, Fatigue HEENT: Reports: No Symptoms Respiratory: Reports: Shortness of Breath Cardiovascular: Reports: No Symptoms Endocrine: Reports: No Symptoms GI/Abdominal: Reports: No Symptoms : Reports: No Symptoms Musculoskeletal: Reports: No Symptoms Skin: Reports: No Symptoms Neurological: Reports: No Symptoms Psychiatric: Reports: No Symptoms Hematologic/Lymphatic: Reports: No Symptoms Immunologic: Reports: No Symptoms ED EXAM, GENERAL - Physical Exam Exam: See Below Exam Limited By: No Limitations General Appearance: Alert, WD/WN, No Apparent Distress Eye Exam: Bilateral Eye: EOMI, PERRL Ears: Normal External Exam, Normal Canal, Normal TMs Ear Exam: Bilateral Ear: Auricle Normal, Canal Normal, TM normal Nose: Normal Inspection, Normal Mucosa, No Blood Throat/Mouth: Normal Inspection, Normal Lips, Normal Teeth, Normal Gums, Normal Oropharynx, Normal Voice, No Airway Compromise Head: Atraumatic, Normocephalic Neck: Normal Inspection, Supple, Non-Tender Respiratory/Chest: No Respiratory Distress, Lungs Clear, Normal Breath Sounds, No Accessory Muscle Use, Chest Non-Tender Cardiovascular: Normal Peripheral Pulses, Regular Rate, Rhythm, No Edema, No Gallop, No JVD, No Murmur Peripheral Pulses: 4+: Radial (R) GI/Abdominal: Normal Bowel Sounds, Soft, Non-Tender, No Organomegaly, No Distention, No Mass (Male) Exam: Deferred Rectal (Males) Exam: Deferred Extremities: Normal Inspection, Normal Range of Motion, Non-Tender Neurological: Alert, Oriented, CN II-XII Intact, Normal Cognition, Normal Gait, No Motor/Sensory Deficits Psychiatric: Normal Affect, Normal Mood Skin Exam: Warm, Dry, Intact Lymphatic: No Adenopathy Course - Vital Signs Last Recorded V/S: Last Vital Signs Temp 38.2 C H 04/20/19 21:04 Pulse 110 H 04/20/19 21:04 Resp 24 H 04/20/19 21:04 BP 137/80 04/20/19 21:04 Pulse Ox 92 L 04/20/19 21:04 - Orders/Labs/Meds Orders: Active Orders 24 hr Category Date Time Status Patient Status [ADT] Routine ADT 04/20/19 22:23 Active EKG Documentation Completion [RC] STAT Care 04/20/19 20:53 Inactive Oxygen Therapy [RC] PRN Care 04/20/19 20:53 Active Chest 1V Frontal [CR] Stat Exams 04/20/19 20:53 Taken ABG [BLOOD GAS ARTERIAL] [BG] Stat Lab 04/20/19 22:22 Ordered CULTURE BLOOD [BC] Stat Lab 04/20/19 20:54 Results CULTURE BLOOD [BC] Stat Lab 04/20/19 21:05 Received Sodium Chloride 0.9% [Saline Flush] Med 04/20/19 20:53 Active 10 ml FLUSH ASDIRECTED PRN Blood Culture x2 Reflex Set [OM.PC] Stat Oth 04/20/19 20:54 Ordered Peripheral IV Insertion Adult [OM.PC] Routine Oth 04/20/19 20:54 Ordered Medication Orders Sodium Chloride (Saline Flush) 10 ml FLUSH ASDIRECTED PRN PRN Reason: Keep Vein Open Labs: Laboratory Tests 04/20/19 04/20/19 04/20/19 Range/Units 20:54 20:54 20:54 WBC 8.4 (4.0-10.0) x10^3/uL RBC 4.54 (4.5-6.0) x10^6/uL Hgb 10.3 L D (14.0-18.0) g/dL Hct 32.5 L (40.0-52.0) % MCV 71.6 L D (78.0-93.0) fL MCH 22.7 L (26.0-32.0) pg MCHC 31.7 L (32.0-36.0) g/dL RDW Coeff of [place] 20.9 H (10.0-15.0) % Plt Count 283 (130-400) x10^3/uL Neut % (Auto) 89.3 H (50.0-80.0) % Lymph % (Auto) 6.1 L (25.0-50.0) % [place] % (Auto) 4.0 (2.0-11.0) % Eos % (Auto) 0.5 (0.0-4.0) % Baso % (Auto) 0.1 L (0.2-1.2) % PT 10.9 (10.0-12.8) SEC INR 1.0 L (2.0-3.5) Sodium 143 (136-145) mmol/L Potassium 3.8 (3.5-5.1) mmol/L Chloride 110 H (98-107) mmol/L Carbon Dioxide 18 L (21-32) mmol/L Anion Gap 18.8 (10-20) mmol/L BUN 18 (7-18) mg/dL Creatinine 1.1 (0.70-1.30) mg/dL Est Cr Clr Drug Dosing 50.95 mL/min Estimated GFR (MDRD) > 60 Glucose 127 H (74-106) mg/dL Lactic Acid (0.4-2.0) mmol/L Calcium 8.0 L (8.5-10.1) mg/dL Corrected Calcium 8.48 L (8.5-10.1) mg/dL Phosphorus 2.1 L (2.6-4.7) mg/dL Magnesium 1.6 L (1.8-2.4) mg/dL Total Bilirubin 0.5 (0.2-1.0) mg/dL AST 18 (15-37) U/L ALT 19 (16-63) U/L Alkaline Phosphatase 82 (46-116) U/L Troponin I < 0.017 (<=0.056) ng/mL C-Reactive Protein 1.1 H (<=0.9) mg/dL NT-Pro-B Natriuret Pep 174 (<=450) pg/mL Total Protein 6.5 (6.4-8.2) g/dL Albumin 3.4 (3.4-5.0) g/dL Globulin 3.1 Albumin/Globulin Ratio 1.10 Urine Color (YELLOW) Urine Appearance (CLEAR) Urine pH (5.0-8.0) Ur Specific [place] Urine Protein (NEGATIVE) mg/dL Urine Glucose (UA) (NEGATIVE) mg/dL Urine Ketones (NEGATIVE) mg/dL Urine Occult Blood (NEGATIVE) Urine Nitrite (NEGATIVE) Urine Bilirubin (NEGATIVE) Urine Urobilinogen (0.2) EU/dL Ur Leukocyte Esterase (NEGATIVE) Urine RBC (NOT SEEN) /HPF Urine WBC (NOT SEEN) /HPF Ur Squamous Epith Cells (NEGATIVE) /HPF Urine Bacteria (NEGATIVE) /HPF Urine Mucus (NEGATIVE) /LPF 04/20/19 04/20/19 Range/Units 20:54 21:15 WBC (4.0-10.0) x10^3/uL RBC (4.5-6.0) x10^6/uL Hgb (14.0-18.0) g/dL Hct (40.0-52.0) % MCV (78.0-93.0) fL MCH (26.0-32.0) pg MCHC (32.0-36.0) g/dL RDW Coeff of [place] (10.0-15.0) % Plt Count (130-400) x10^3/uL Neut % (Auto) (50.0-80.0) % Lymph % (Auto) (25.0-50.0) % [place] % (Auto) (2.0-11.0) % Eos % (Auto) (0.0-4.0) % Baso % (Auto) (0.2-1.2) % PT (10.0-12.8) SEC INR (2.0-3.5) Sodium (136-145) mmol/L Potassium (3.5-5.1) mmol/L Chloride (98-107) mmol/L Carbon Dioxide (21-32) mmol/L Anion Gap (10-20) mmol/L BUN (7-18) mg/dL Creatinine (0.70-1.30) mg/dL Est Cr Clr Drug Dosing mL/min Estimated GFR (MDRD) Glucose (74-106) mg/dL Lactic Acid 1.6 (0.4-2.0) mmol/L Calcium (8.5-10.1) mg/dL Corrected Calcium (8.5-10.1) mg/dL Phosphorus (2.6-4.7) mg/dL Magnesium (1.8-2.4) mg/dL Total Bilirubin (0.2-1.0) mg/dL AST (15-37) U/L ALT (16-63) U/L Alkaline Phosphatase (46-116) U/L Troponin I (<=0.056) ng/mL C-Reactive Protein (<=0.9) mg/dL NT-Pro-B Natriuret Pep (<=450) pg/mL Total Protein (6.4-8.2) g/dL Albumin (3.4-5.0) g/dL Globulin Albumin/Globulin Ratio Urine Color Yellow (YELLOW) Urine Appearance Clear (CLEAR) Urine pH 5.5 (5.0-8.0) Ur Specific [place] 1.020 Urine Protein Negative (NEGATIVE) mg/dL Urine Glucose (UA) Negative (NEGATIVE) mg/dL Urine Ketones Negative (NEGATIVE) mg/dL Urine Occult Blood Negative (NEGATIVE) Urine Nitrite Negative (NEGATIVE) Urine Bilirubin Negative (NEGATIVE) Urine Urobilinogen 0.2 (0.2) EU/dL Ur Leukocyte Esterase Negative (NEGATIVE) Urine RBC Not seen (NOT SEEN) /HPF Urine WBC Not seen (NOT SEEN) /HPF Ur Squamous Epith Cells Rare (NEGATIVE) /HPF Urine Bacteria Not seen (NEGATIVE) /HPF Urine Mucus Rare H (NEGATIVE) /LPF Meds: Medications Generic Name Dose Route Start Last Admin Trade Name Freq PRN Reason Stop Dose Admin Sodium Chloride 10 ml 04/20/19 20:53 Saline Flush FLUSH ASDIRECTED PRN Keep Vein Open Discontinued Medications Generic Name Dose Route Start Last Admin Trade Name Freq PRN Reason Stop Dose Admin Ceftriaxone Sodium 2 gm 04/20/19 21:17 04/20/19 21:26 Rocephin IVPUSH 04/20/19 21:18 2 gm STAT ONE Administration Azithromycin 500 mg/ Sodium 250 mls @ 250 mls/hr 04/20/19 21:18 04/20/19 21: 28 Chloride IV 04/20/19 22:17 250 mls/hr STAT ONE Administration - Radiology Interpretation Free Text/Narrative:: Chest x-ray did not show obvious infiltrate. Remainder of chest x-ray was unchanged. Departure - Departure Time of Disposition: 22:29 Disposition: Admitted As Inpatient 66 Clinical Impression: Pneumonia - Discharge Information Referrals: Walter Mackey MD [Primary Care Provider] - - Problem List Review Problem List Initiated/Reviewed/Updated: Yes - My Orders Last 24 Hours: My Active Orders 04/20/19 20:53 EKG Documentation Completion [RC] STAT Oxygen Therapy [RC] PRN Chest 1V Frontal [CR] Stat Sodium Chloride 0.9% [Saline Flush] 10 ml FLUSH ASDIRECTED PRN 04/20/19 20:54 CULTURE BLOOD [BC] Stat Blood Culture x2 Reflex Set [OM.PC] Stat Peripheral IV Insertion Adult [OM.PC] Routine 04/20/19 21:05 CULTURE BLOOD [BC] Stat 04/20/19 22:22 ABG [BLOOD GAS ARTERIAL] [BG] Stat 04/20/19 22:23 Patient Status [ADT] Routine - Assessment/Plan Last 24 Hours: My Active Orders 04/20/19 20:53 EKG Documentation Completion [RC] STAT Oxygen Therapy [RC] PRN Chest 1V Frontal [CR] Stat Sodium Chloride 0.9% [Saline Flush] 10 ml FLUSH ASDIRECTED PRN 04/20/19 20:54 CULTURE BLOOD [BC] Stat Blood Culture x2 Reflex Set [OM.PC] Stat Peripheral IV Insertion Adult [OM.PC] Routine 04/20/19 21:05 CULTURE BLOOD [BC] Stat 04/20/19 22:22 ABG [BLOOD GAS ARTERIAL] [BG] Stat 04/20/19 22:23 Patient Status [ADT] Routine Plan: Pt. will be admitted acutely. Clinically, he appears to have pneumonia based on his physical exam and history. He was given 2 gm rocephin IV and azithromycin 400mg IV. Will repeat CXR in the AM. Family is present and aware of findings. Family and patient wish for patient to be code 1.
[2019-04-20] MEDS ORDERED: cefTRIAXone 2 GM Vial IVPUSH ONE (21:17)
[2019-04-20] MEDS ORDERED: Azithromycin 500 MG in Sodium Chloride 0.9% 250 ML IV ONE (21:18)
[2019-04-20 21:36] LABS: CHLORIDE,CL 110 mmol/L (98-107); SODIUM,NA 143 mmol/L (136-145)
[2019-04-20 21:37] LABS: ANION GAP 18.8 mmol/L (10-20)
[2019-04-20] MEDS ORDERED: Dextrose 5%-0.45% NaCl 1,000 ML IV SCH (23:30)
--- NOTE | 2019-04-20 23:50 | PCM.HP.2 ---
H&P History of Present Illness - General Date of Service: 04/20/19 Admit Problem/Dx: Admission Diagnosis/Problem Admission Diagnosis/Problem Pneumonia Source of Information: Patient - History of Present Illness Initial Comments - Free Text/Narative: Chief complaint: Weakness Patient is an 88-year-old male who lives at [facility] which is assisted living. According to his and son he was fine yesterday but today he had an episode of feeling nauseated and then inability to get out of the chair. He may have had some coughing and shortness of breath but he chronically has COPD and is not sure that this is any different. According to nurse's note he had a temperature at [facility] 105 but here it is 100.5 patient has a history of pneumonia in GI bleeding in the past. Hemoglobin in the emergency room was 10 compared to a hemoglobin of 14 14 months ago. Patient is admitted now for treatment of possible pneumonia. - Related Data Allergies/Adverse Reactions: Allergies Allergy/AdvReac Type Severity Reaction Status Date / Time No Known Drug Allergies Allergy Other Verified 10/25/17 10:36 Home Medications: Home Meds Multivitamin [Daily Multiple Vitamin] 1 tab PO DAILY 05/15/14 [History] Simvastatin [Zocor] 20 mg PO BEDTIME 05/15/14 [History] Tiotropium [Spiriva HandiHaler] 18 mcg INH DAILY 05/15/14 [History] Aspirin [Low Dose Aspirin EC] 81 mg PO DAILY 10/25/17 [History] Omeprazole 1 cap PO DAILY 04/20/19 [History] Ranitidine [Zantac] 1 tab PO DAILY 04/20/19 [History] Tamsulosin HCl 1 cap PO DAILY 04/20/19 [History] Past Medical History HEENT History: Reports: Hard of Hearing, Other (See Below) (History of bilateral cataract extraction) Other HEENT History: uses hearing aid Cardiovascular History: Reports: Afib, High Cholesterol (Atrial fibrillation with after his hip surgery and it has not recurred. 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 Patient uses Spiriva daily and is not on oxygen at home. He was on oxygen after hospitalization for pneumonia in October 2017) Gastrointestinal History: Reports: Diverticulosis (Patient has had postprandial nausea in the past, he had an upper GI series within the last year that was grossly normal. There was maybe some abnormality in the GE junction but this was not followed up with EGD because of his age. Patient has a known history of diverticula.) Genitourinary History: Reports: None Musculoskeletal History: Reports: Arthritis, Osteoarthritis (Bilateral knee replacements, right hip replacement) Neurological History: Reports: None, Vertigo (Patient did not think he had any vertigo today he just felt unsteady) Psychiatric History: Reports: None Endocrine/Metabolic History: Reports: None Hematologic History: Reports: Other (See Below) Oncologic (Cancer) History: Reports: None, Other (See Below) (Has had numerous small skin cancers) Dermatologic History: Reports: Eczema, Other (See Below) Other Dermatologic History: basal cell carcinoma - Infectious Disease History Infectious Disease History: Reports: None - Past Surgical History HEENT Surgical History: Reports: Cataract Surgery GI Surgical History: Reports: Cholecystectomy, Hernia Repair/Other Musculoskeletal Surgical History: Reports: Hip Replacement, Knee Replacement Social & Family History - Family History Family Medical History: Noncontributory HEENT: Reports: Hearing Impairment Cardiac: Reports: Afib GI: Reports: Diverticulitis Hematologic: Reports: Other (See Below) (son has leiden factor mutation) - Tobacco Use Smoking Status *Q: Never Smoker Tobacco Use Within Last Twelve Months: No - Caffeine Use Caffeine Use: Reports: Coffee - Alcohol Use Alcohol Use Frequency: Rarely (Communion wine) - Recreational Drug Use Recreational Drug Use: No H&P Review of Systems - Review of Systems: Review Of Systems: See Below General: Reports: No Symptoms HEENT: Reports: Hearing Changes Pulmonary: Reports: Shortness of Breath, Cough Cardiovascular: Reports: Lightheadedness (Denied chest, back, jaw pain, denied limitations) Gastrointestinal: Reports: Nausea (No vomiting, black or red bowel movements, diarrhea or constipation) Genitourinary: Reports: No Symptoms Musculoskeletal: Reports: Shoulder Pain (Chronic) Skin: Reports: No Symptoms Psychiatric: Reports: No Symptoms Neurological: Reports: Difficulty Walking (Chronically has difficulty walking and balance. Denies any best vertigo presently) Hematologic/Lymphatic: Reports: No Symptoms Immunologic: Reports: No Symptoms Exam - Exam Exam: See Below - Vital Signs Vital Signs: Last Vital Signs Temp 99 F 04/20/19 22:46 Pulse 99 04/20/19 22:46 Resp 24 H 04/20/19 21:04 BP 121/60 04/20/19 22:46 Pulse Ox 98 04/20/19 22:46 Weight: 230 lb (Pressure was 124/70 without any orthostatic changes on the floor ) - Exam Quality Assessment: Supplemental Oxygen General: Alert HEENT: Conjunctiva Clear (Mucous membranes somewhat dry, patient has poor hearing) Neck: Supple, Trachea Midline Lungs: Rales (At both bases right more than left, scattered rhonchi. No wheezing ) Cardiovascular: Regular Rate, Regular Rhythm, Normal S1, Normal S2 GI/Abdominal Exam: Normal Bowel Sounds, Soft, Non-Tender, No Organomegaly, No Distention, No Mass (Male) Exam: No Hernia (According to PA, stool was negative for blood) Rectal (Males) Exam: Other (see Pa note) Back Exam: Normal Inspection Extremities: Pedal Edema (1. He lived edema, stasis changes present, absent DP pulses) Skin: Warm, Dry, Intact Neurological: Cranial Nerves Intact, Normal Speech, Normal Tone (Patient moving all extremities equally, with gait belt and help patient was able to get out of bed and take a few steps but he was unsteady) Neuro Extensive - Mental Status: Alert, Oriented x3, Normal Mood/Affect, Normal Cognition Neuro Extensive - Motor, Sensory, Reflexes: CN II-XII Intact Psychiatric: Alert, Normal Affect - Patient Data Lab Results Last 24 hrs: Laboratory Results - last 24 hr 04/20/19 04/20/19 04/20/19 Range/Units 20:54 20:54 20:54 WBC 8.4 (4.0-10.0) x10^3/uL RBC 4.54 (4.5-6.0) x10^6/uL Hgb 10.3 L D (14.0-18.0) g/dL Hct 32.5 L (40.0-52.0) % MCV 71.6 L D (78.0-93.0) fL MCH 22.7 L (26.0-32.0) pg MCHC 31.7 L (32.0-36.0) g/dL RDW Coeff of German 20.9 H (10.0-15.0) % Plt Count 283 (130-400) x10^3/uL Neut % (Auto) 89.3 H (50.0-80.0) % Lymph % (Auto) 6.1 L (25.0-50.0) % [place] % (Auto) 4.0 (2.0-11.0) % Eos % (Auto) 0.5 (0.0-4.0) % Baso % (Auto) 0.1 L (0.2-1.2) % PT 10.9 (10.0-12.8) SEC INR 1.0 L (2.0-3.5) POC ABG pH (7.35-7.45) POC ABG pCO2 (35-45) mmHG POC ABG pO2 (80-105) mmHG POC ABG HCO3 (22-26) mmol/L POC ABG Total CO2 (23-27) mmol/L POC ABG O2 Sat (95-98) % POC ABG Base Excess (-2-3) mmol/L POC FiO2 Sodium 143 (136-145) mmol/L Potassium 3.8 (3.5-5.1) mmol/L Chloride 110 H (98-107) mmol/L Carbon Dioxide 18 L (21-32) mmol/L Anion Gap 18.8 (10-20) mmol/L BUN 18 (7-18) mg/dL Creatinine 1.1 (0.70-1.30) mg/dL Est Cr Clr Drug Dosing 50.95 mL/min Estimated GFR (MDRD) > 60 Glucose 127 H (74-106) mg/dL Lactic Acid (0.4-2.0) mmol/L Calcium 8.0 L (8.5-10.1) mg/dL Corrected Calcium 8.48 L (8.5-10.1) mg/dL Phosphorus 2.1 L (2.6-4.7) mg/dL Magnesium 1.6 L (1.8-2.4) mg/dL Total Bilirubin 0.5 (0.2-1.0) mg/dL AST 18 (15-37) U/L ALT 19 (16-63) U/L Alkaline Phosphatase 82 (46-116) U/L Troponin I < 0.017 (<=0.056) ng/mL C-Reactive Protein 1.1 H (<=0.9) mg/dL NT-Pro-B Natriuret Pep 174 (<=450) pg/mL Total Protein 6.5 (6.4-8.2) g/dL Albumin 3.4 (3.4-5.0) g/dL Globulin 3.1 Albumin/Globulin Ratio 1.10 Urine Color (YELLOW) Urine Appearance (CLEAR) Urine pH (5.0-8.0) Ur Specific [place] Urine Protein (NEGATIVE) mg/dL Urine Glucose (UA) (NEGATIVE) mg/dL Urine Ketones (NEGATIVE) mg/dL Urine Occult Blood (NEGATIVE) Urine Nitrite (NEGATIVE) Urine Bilirubin (NEGATIVE) Urine Urobilinogen (0.2) EU/dL Ur Leukocyte Esterase (NEGATIVE) Urine RBC (NOT SEEN) /HPF Urine WBC (NOT SEEN) /HPF Ur Squamous Epith Cells (NEGATIVE) /HPF Urine Bacteria (NEGATIVE) /HPF Urine Mucus (NEGATIVE) /LPF 04/20/19 04/20/19 04/20/19 Range/Units 20:54 21:15 22:40 WBC (4.0-10.0) x10^3/uL RBC (4.5-6.0) x10^6/uL Hgb (14.0-18.0) g/dL Hct (40.0-52.0) % MCV (78.0-93.0) fL MCH (26.0-32.0) pg MCHC (32.0-36.0) g/dL RDW Coeff of German (10.0-15.0) % Plt Count (130-400) x10^3/uL Neut % (Auto) (50.0-80.0) % Lymph % (Auto) (25.0-50.0) % [place] % (Auto) (2.0-11.0) % Eos % (Auto) (0.0-4.0) % Baso % (Auto) (0.2-1.2) % PT (10.0-12.8) SEC INR (2.0-3.5) POC ABG pH 7.415 (7.35-7.45) POC ABG pCO2 26 L (35-45) mmHG POC ABG pO2 72 L (80-105) mmHG POC ABG HCO3 17 L (22-26) mmol/L POC ABG Total CO2 17 L (23-27) mmol/L POC ABG O2 Sat 95 (95-98) % POC ABG Base Excess -8 L (-2-3) mmol/L POC FiO2 0.28 Sodium (136-145) mmol/L Potassium (3.5-5.1) mmol/L Chloride (98-107) mmol/L Carbon Dioxide (21-32) mmol/L Anion Gap (10-20) mmol/L BUN (7-18) mg/dL Creatinine (0.70-1.30) mg/dL Est Cr Clr Drug Dosing mL/min Estimated GFR (MDRD) Glucose (74-106) mg/dL Lactic Acid 1.6 (0.4-2.0) mmol/L Calcium (8.5-10.1) mg/dL Corrected Calcium (8.5-10.1) mg/dL Phosphorus (2.6-4.7) mg/dL Magnesium (1.8-2.4) mg/dL Total Bilirubin (0.2-1.0) mg/dL AST (15-37) U/L ALT (16-63) U/L Alkaline Phosphatase (46-116) U/L Troponin I (<=0.056) ng/mL C-Reactive Protein (<=0.9) mg/dL NT-Pro-B Natriuret Pep (<=450) pg/mL Total Protein (6.4-8.2) g/dL Albumin (3.4-5.0) g/dL Globulin Albumin/Globulin Ratio Urine Color Yellow (YELLOW) Urine Appearance Clear (CLEAR) Urine pH 5.5 (5.0-8.0) Ur Specific Yale 1.020 Urine Protein Negative (NEGATIVE) mg/dL Urine Glucose (UA) Negative (NEGATIVE) mg/dL Urine Ketones Negative (NEGATIVE) mg/dL Urine Occult Blood Negative (NEGATIVE) Urine Nitrite Negative (NEGATIVE) Urine Bilirubin Negative (NEGATIVE) Urine Urobilinogen 0.2 (0.2) EU/dL Ur Leukocyte Esterase Negative (NEGATIVE) Urine RBC Not seen (NOT SEEN) /HPF Urine WBC Not seen (NOT SEEN) /HPF Ur Squamous Epith Cells Rare (NEGATIVE) /HPF Urine Bacteria Not seen (NEGATIVE) /HPF Urine Mucus Rare H (NEGATIVE) /LPF Result Diagrams: 04/20/19 20:54 04/20/19 20:54 Klever Results Last 24 hrs: Microbiology 04/20/19 20:54 Anaerobic Blood Culture - Final Blood - Venous EKG INTERPRETATION Rhythm: NSR [place]: LAD-Left [place] Deviation P-Wave: Present QRS: Normal ST-T: Other QT: Normal (There was T-wave inversion in 1 and L previous EKG could not be found) *Q Meaningful Use (ADM) - VTE Risk Assess *Q Each Risk Factor Represents 3 Points: Age 75 Years or Greater Total Score 3 Point Risk Factors: 3 Each Risk Factor Represents 5 Points: None Total Score 5 Point Risk Factors: 0 Problem List Initiated/Reviewed/Updated: Yes Orders Last 24hrs: Active Orders 24 hr Category Date Time Status Patient Status [ADT] Routine ADT 04/20/19 22:23 Active Patient Status [ADT] Routine ADT 04/20/19 23:20 Ordered Antiembolic Devices [RC] PER UNIT ROUTINE Care 04/20/19 23:27 Ordered Cardiac Monitoring [RC] . DIRECTED Care 04/20/19 23:44 Ordered Dietary Supplements [RC] BIDMEALS Care 04/20/19 23:31 Ordered Dietary Supplements [RC] BIDMEALS Care 04/20/19 23:34 Ordered EKG Documentation Completion [RC] STAT Care 04/20/19 20:53 Inactive Hemoccult [Fecal Occult Bld Diag Imm] [RC] ASDIRECTED Care 04/20/19 23:39 Ordered Incentive Spirometry [RT Incentive Spirometry] [RC] Care 04/20/19 23:29 Ordered Q1HWA Notify Provider Vital Signs [RC] ASDIRECTED Care 04/20/19 23:25 Ordered Oxygen Therapy [RC] PRN Care 04/20/19 20:53 Active Oxygen Therapy [RC] PRN Care 04/20/19 23:20 Ordered Up With Assistance [RC] ASDIRECTED Care 04/20/19 23:20 Ordered VTE/DVT Education [RC] PER UNIT ROUTINE Care 04/20/19 23:20 Ordered Vital Signs [RC] Q4H Care 04/20/19 23:20 Ordered PT Evaluation and Treatment [CONS] Routine Cons 04/20/19 23:28 Ordered 2 Gram Sodium Diet [DIET] Diet 04/20/19 Breakfast Ordered Chest 1V Frontal [CR] Stat Exams 04/20/19 20:53 Taken CBC WITH AUTO DIFF [HEME] Routine Lab 04/21/19 07:00 Ordered CULTURE BLOOD [BC] Stat Lab 04/20/19 20:54 Results CULTURE BLOOD [BC] Stat Lab 04/20/19 21:05 Received IRON & TIBC [REF] Routine Lab 04/21/19 07:00 Ordered TROPONIN I [CHEM] Routine Lab 04/21/19 07:00 Ordered Azithromycin [Zithromax] Med 04/21/19 20:00 Ordered 500 mg PO DAILY Dextrose 5%-0.45% NaCl [Dextrose 5%-1/2 NS] 1,000 ml Med 04/20/19 23:30 Ordered IV ASDIRECTED Ipratropium [Atrovent] Med 04/21/19 07:00 Ordered 0.5 mg NEB Q8HRRT Magnesium Chloride [Mag-64] Med 04/21/19 08:00 Ordered 64 mg PO DAILY Simvastatin [Zocor] Med 04/21/19 20:00 Ordered 20 mg PO BEDTIME Sodium Chloride 0.9% [Saline Flush] Med 04/20/19 20:53 Active 10 ml FLUSH ASDIRECTED PRN cefTRIAXone [Rocephin] Med 04/21/19 20:00 Ordered 1 gm IVPUSH DAILY Blood Culture x2 Reflex Set [OM.PC] Stat Oth 04/20/19 20:54 Ordered Peripheral IV Insertion Adult [OM.PC] Routine Oth 04/20/19 20:54 Ordered Sequential Compression Device [OM.PC] Per Unit Routine Oth 04/20/19 23:26 Ordered Resuscitation Status Routine Resus Stat 04/20/19 23:20 Ordered Medication Orders Azithromycin (Zithromax) 500 mg PO DAILY@2000 FRANCIE Ceftriaxone Sodium (Rocephin) 1 gm IVPUSH DAILY@2000 FRANCIE Dextrose/Sodium Chloride (Dextrose 5%-1/2 Ns) 1,000 mls @ 100 mls/hr IV ASDIRECTED FRANCIE Ipratropium [place] (Atrovent) 0.5 mg NEB Q8HRRT FRANCIE Magnesium Chloride (Mag-64) 64 mg PO DAILY FRANCIE Simvastatin (Zocor) 20 mg PO BEDTIME FRANCIE Sodium Chloride (Saline Flush) 10 ml FLUSH ASDIRECTED PRN PRN Reason: Keep Vein Open Assessment/Plan Comment:: Impression 1. Low-grade fever and weakness: This abnormal lung examination suspect he has pneumonia again planning. Patient has received Rocephin and azithromycin will continue with same for now and follow carefully. Physical therapy will be started as soon as possible 2. Abnormal EKG: We'll recheck EKG in the morning and recheck troponin, guest service agent in the meantime 3. Decreased hemoglobin. We'll recheck in the morning, check all stools for blood, iron studies. As the patient has a history of hematemesis and diverticuli noted to hold off on any heparin for now for DVT prophylaxis also we 'll hold his aspirin . 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 Will restart PPI as he was not taking this at home. 4. History of hyperlipidemia: Continue with Zocor 5. COPD: We do not have Spiriva on formulary won't substitute Atrovent. Also will try to ensure he has an incentive spirometer. 6. Hypomagnesemia: Replace magnesium 7. Baseline weakness and unsteadiness: PT consultation
[2019-04-21] MEDS ORDERED: Omeprazole 20 MG Cap.CR PO SCH (07:00)
[2019-04-21] MEDS: Ipratropium 0.02% 0.5 MG/2.5 ML Neb Soln NEB SCH ×3 (07:05→23:18)
[2019-04-21] MEDS: Magnesium Chloride 64 MG Tab.ER PO SCH (08:13)
--- NOTE | 2019-04-21 09:28 | CR ---
[id number] RAD/RAD Chest PA or AP 1V EXAM: SINGLE VIEW CHEST. INDICATION: FEVER WEAKNESS COMPARISON: CORRELATION IS MADE WITH THE EXAM OF NOVEMBER 06, 2017 FINDINGS: The lungs are clear The cardiomediastinal contour is stable There is small hiatal hernia IMPRESSION: NO PNEUMONIA OR EDEMA Surya Rivera MD 04/21/19 0927 Thank you for allowing us to participate in the care of your patient.
--- NOTE | 2019-04-21 10:39 | PCM.PN ---
- General Info Date of Service: 04/21/19 Subjective Update: She denies any chest pain, nausea, he still feels somewhat "woozy. He has no pain. Denies any unusual shortness of breath. Patient has had no abdominal symptoms. He has had no bowel movement since being in the hospital. - Patient Data Vitals - Most Recent: Last Vital Signs Temp 98.2 F 04/21/19 06:00 Pulse 83 04/21/19 06:00 Resp 20 04/21/19 06:00 BP 120/57 L 04/21/19 06:00 Pulse Ox 92 L 04/21/19 06:00 Weight - Most Recent: 230 lb (Pressure was 124/70 without any orthostatic changes on the floor) I&O - Last 24 Hours: Intake & Output 04/20/19 04/21/19 04/21/19 22:59 06:59 14:59 Intake Total 450 398 240 Output Total 100 Balance 450 298 240 Lab Results Last 24 Hours: Laboratory Results - last 24 hr 04/20/19 04/20/19 04/20/19 Range/Units 20:54 20:54 20:54 WBC 8.4 (4.0-10.0) x10^3/uL RBC 4.54 (4.5-6.0) x10^6/uL Hgb 10.3 L D (14.0-18.0) g/dL Hct 32.5 L (40.0-52.0) % MCV 71.6 L D (78.0-93.0) fL MCH 22.7 L (26.0-32.0) pg MCHC 31.7 L (32.0-36.0) g/dL RDW Coeff of Germna 20.9 H (10.0-15.0) % Plt Count 283 (130-400) x10^3/uL Neut % (Auto) 89.3 H (50.0-80.0) % Lymph % (Auto) 6.1 L (25.0-50.0) % [place] % (Auto) 4.0 (2.0-11.0) % Eos % (Auto) 0.5 (0.0-4.0) % Baso % (Auto) 0.1 L (0.2-1.2) % PT 10.9 (10.0-12.8) SEC INR 1.0 L (2.0-3.5) POC ABG pH (7.35-7.45) POC ABG pCO2 (35-45) mmHG POC ABG pO2 (80-105) mmHG POC ABG HCO3 (22-26) mmol/L POC ABG Total CO2 (23-27) mmol/L POC ABG O2 Sat (95-98) % POC ABG Base Excess (-2-3) mmol/L POC FiO2 Sodium 143 (136-145) mmol/L Potassium 3.8 (3.5-5.1) mmol/L Chloride 110 H (98-107) mmol/L Carbon Dioxide 18 L (21-32) mmol/L Anion Gap 18.8 (10-20) mmol/L BUN 18 (7-18) mg/dL Creatinine 1.1 (0.70-1.30) mg/dL Est Cr Clr Drug Dosing 50.95 mL/min Estimated GFR (MDRD) > 60 Glucose 127 H (74-106) mg/dL Lactic Acid (0.4-2.0) mmol/L Calcium 8.0 L (8.5-10.1) mg/dL Corrected Calcium 8.48 L (8.5-10.1) mg/dL Phosphorus 2.1 L (2.6-4.7) mg/dL Magnesium 1.6 L (1.8-2.4) mg/dL Iron (65-175) ug/dL TIBC (250-450) ug/dL % Saturation (20.0-50.0) % Total Bilirubin 0.5 (0.2-1.0) mg/dL AST 18 (15-37) U/L ALT 19 (16-63) U/L Alkaline Phosphatase 82 (46-116) U/L Troponin I < 0.017 (<=0.056) ng/mL C-Reactive Protein 1.1 H (<=0.9) mg/dL NT-Pro-B Natriuret Pep 174 (<=450) pg/mL Total Protein 6.5 (6.4-8.2) g/dL Albumin 3.4 (3.4-5.0) g/dL Globulin 3.1 Albumin/Globulin Ratio 1.10 Urine Color (YELLOW) Urine Appearance (CLEAR) Urine pH (5.0-8.0) Ur Specific [place] Urine Protein (NEGATIVE) mg/dL Urine Glucose (UA) (NEGATIVE) mg/dL Urine Ketones (NEGATIVE) mg/dL Urine Occult Blood (NEGATIVE) Urine Nitrite (NEGATIVE) Urine Bilirubin (NEGATIVE) Urine Urobilinogen (0.2) EU/dL Ur Leukocyte Esterase (NEGATIVE) Urine RBC (NOT SEEN) /HPF Urine WBC (NOT SEEN) /HPF Ur Squamous Epith Cells (NEGATIVE) /HPF Urine Bacteria (NEGATIVE) /HPF Urine Mucus (NEGATIVE) /LPF 04/20/19 04/20/19 04/20/19 Range/Units 20:54 21:15 22:40 WBC (4.0-10.0) x10^3/uL RBC (4.5-6.0) x10^6/uL Hgb (14.0-18.0) g/dL Hct (40.0-52.0) % MCV (78.0-93.0) fL MCH (26.0-32.0) pg MCHC (32.0-36.0) g/dL RDW Coeff of German (10.0-15.0) % Plt Count (130-400) x10^3/uL Neut % (Auto) (50.0-80.0) % Lymph % (Auto) (25.0-50.0) % [place] % (Auto) (2.0-11.0) % Eos % (Auto) (0.0-4.0) % Baso % (Auto) (0.2-1.2) % PT (10.0-12.8) SEC INR (2.0-3.5) POC ABG pH 7.415 (7.35-7.45) POC ABG pCO2 26 L (35-45) mmHG POC ABG pO2 72 L (80-105) mmHG POC ABG HCO3 17 L (22-26) mmol/L POC ABG Total CO2 17 L (23-27) mmol/L POC ABG O2 Sat 95 (95-98) % POC ABG Base Excess -8 L (-2-3) mmol/L POC FiO2 0.28 Sodium (136-145) mmol/L Potassium (3.5-5.1) mmol/L Chloride (98-107) mmol/L Carbon Dioxide (21-32) mmol/L Anion Gap (10-20) mmol/L BUN (7-18) mg/dL Creatinine (0.70-1.30) mg/dL Est Cr Clr Drug Dosing mL/min Estimated GFR (MDRD) Glucose (74-106) mg/dL Lactic Acid 1.6 (0.4-2.0) mmol/L Calcium (8.5-10.1) mg/dL Corrected Calcium (8.5-10.1) mg/dL Phosphorus (2.6-4.7) mg/dL Magnesium (1.8-2.4) mg/dL Iron (65-175) ug/dL TIBC (250-450) ug/dL % Saturation (20.0-50.0) % Total Bilirubin (0.2-1.0) mg/dL AST (15-37) U/L ALT (16-63) U/L Alkaline Phosphatase (46-116) U/L Troponin I (<=0.056) ng/mL C-Reactive Protein (<=0.9) mg/dL NT-Pro-B Natriuret Pep (<=450) pg/mL Total Protein (6.4-8.2) g/dL Albumin (3.4-5.0) g/dL Globulin Albumin/Globulin Ratio Urine Color Yellow (YELLOW) Urine Appearance Clear (CLEAR) Urine pH 5.5 (5.0-8.0) Ur Specific [place] 1.020 Urine Protein Negative (NEGATIVE) mg/dL Urine Glucose (UA) Negative (NEGATIVE) mg/dL Urine Ketones Negative (NEGATIVE) mg/dL Urine Occult Blood Negative (NEGATIVE) Urine Nitrite Negative (NEGATIVE) Urine Bilirubin Negative (NEGATIVE) Urine Urobilinogen 0.2 (0.2) EU/dL Ur Leukocyte Esterase Negative (NEGATIVE) Urine RBC Not seen (NOT SEEN) /HPF Urine WBC Not seen (NOT SEEN) /HPF Ur Squamous Epith Cells Rare (NEGATIVE) /HPF Urine Bacteria Not seen (NEGATIVE) /HPF Urine Mucus Rare H (NEGATIVE) /LPF 04/21/19 04/21/19 04/21/19 Range/Units 07:31 07:31 07:31 WBC 6.6 (4.0-10.0) x10^3/uL RBC 4.14 L (4.5-6.0) x10^6/uL Hgb 9.4 L (14.0-18.0) g/dL Hct 29.9 L (40.0-52.0) % MCV 72.2 L (78.0-93.0) fL MCH 22.7 L (26.0-32.0) pg MCHC 31.4 L (32.0-36.0) g/dL RDW Coeff of German 20.6 H (10.0-15.0) % Plt Count 254 (130-400) x10^3/uL Neut % (Auto) 72.7 (50.0-80.0) % Lymph % (Auto) 15.4 L (25.0-50.0) % [place] % (Auto) 10.2 (2.0-11.0) % Eos % (Auto) 1.5 (0.0-4.0) % Baso % (Auto) 0.2 (0.2-1.2) % PT (10.0-12.8) SEC INR (2.0-3.5) POC ABG pH (7.35-7.45) POC ABG pCO2 (35-45) mmHG POC ABG pO2 (80-105) mmHG POC ABG HCO3 (22-26) mmol/L POC ABG Total CO2 (23-27) mmol/L POC ABG O2 Sat (95-98) % POC ABG Base Excess (-2-3) mmol/L POC FiO2 Sodium (136-145) mmol/L Potassium (3.5-5.1) mmol/L Chloride (98-107) mmol/L Carbon Dioxide (21-32) mmol/L Anion Gap (10-20) mmol/L BUN (7-18) mg/dL Creatinine (0.70-1.30) mg/dL Est Cr Clr Drug Dosing mL/min Estimated GFR (MDRD) Glucose (74-106) mg/dL Lactic Acid (0.4-2.0) mmol/L Calcium (8.5-10.1) mg/dL Corrected Calcium (8.5-10.1) mg/dL Phosphorus (2.6-4.7) mg/dL Magnesium (1.8-2.4) mg/dL Iron 25 L (65-175) ug/dL TIBC 273 (250-450) ug/dL % Saturation 9.2 L (20.0-50.0) % Total Bilirubin (0.2-1.0) mg/dL AST (15-37) U/L ALT (16-63) U/L Alkaline Phosphatase (46-116) U/L Troponin I < 0.017 (<=0.056) ng/mL C-Reactive Protein (<=0.9) mg/dL NT-Pro-B Natriuret Pep (<=450) pg/mL Total Protein (6.4-8.2) g/dL Albumin (3.4-5.0) g/dL Globulin Albumin/Globulin Ratio Urine Color (YELLOW) Urine Appearance (CLEAR) Urine pH (5.0-8.0) Ur Specific [place] Urine Protein (NEGATIVE) mg/dL Urine Glucose (UA) (NEGATIVE) mg/dL Urine Ketones (NEGATIVE) mg/dL Urine Occult Blood (NEGATIVE) Urine Nitrite (NEGATIVE) Urine Bilirubin (NEGATIVE) Urine Urobilinogen (0.2) EU/dL Ur Leukocyte Esterase (NEGATIVE) Urine RBC (NOT SEEN) /HPF Urine WBC (NOT SEEN) /HPF Ur Squamous Epith Cells (NEGATIVE) /HPF Urine Bacteria (NEGATIVE) /HPF Urine Mucus (NEGATIVE) /LPF Klever Results Last 24 Hours: Microbiology 04/20/19 20:54 Anaerobic Blood Culture - Final Blood - Venous Med Orders - Current: Current Medications Azithromycin (Zithromax) 500 mg PO DAILY@1999 [facility] Ceftriaxone Sodium (Rocephin) 1 gm IVPUSH DAILY@1999 [facility] Famotidine (Pepcid) 20 mg PO BEDTIME [facility] Ferrous Sulfate (Ferrous Sulfate) 325 mg PO WITHBREAKFAST [facility] Dextrose/Sodium Chloride (Dextrose 5%-1/2 Ns) 1,000 mls @ 100 mls/hr IV ASDIRECTED [facility] Last Admin: 04/21/19 02:50 Dose: 100 mls/hr Ipratropium [place] (Atrovent) 0.5 mg NEB Q8HRRT [facility] Last Admin: 04/21/19 07:05 Dose: 0.5 mg Magnesium Chloride (Mag-64) 64 mg PO DAILY [facility] Last Admin: 04/21/19 08:13 Dose: 64 mg Omeprazole (Omeprazole) 20 mg PO DAILY@1100 [facility] Simvastatin (Zocor) 20 mg PO BEDTIME [facility] Sodium Chloride (Saline Flush) 10 ml FLUSH ASDIRECTED PRN PRN Reason: Keep Vein Open Discontinued Medications Ceftriaxone Sodium (Rocephin) 2 gm IVPUSH STAT ONE Stop: 04/20/19 21:18 Last Admin: 04/20/19 21:26 Dose: 2 gm Azithromycin 500 mg/ Sodium (Chloride) 250 mls @ 250 mls/hr IV STAT ONE Stop: 04/20/19 22:17 Last Admin: 04/20/19 21:28 Dose: 250 mls/hr Omeprazole (Omeprazole) 20 mg PO ACBREAKFAST [place] Last Admin: 04/21/19 07:05 Dose: 20 mg - Exam Quality Assessment: Supplemental Oxygen General: Alert, Oriented, Cooperative, No Acute Distress Lungs: Rales (at bases; rhonchi in upper [place] cleared) Cardiovascular: Regular Rate, Regular Rhythm, No Murmurs GI/Abdominal Exam: Normal Bowel Sounds EKG INTERPRETATION Rhythm: NSR (STT changes less prounce than yesterday but rate is down. Nurse note indicates A fib at 4:41; strip shows hwtr aappears to be a regular rhythm.) - Problem List Review Problem List Initiated/Reviewed/Updated: Yes - My Orders Last 24 Hours: My Active Orders 04/20/19 23:20 Patient Status [ADT] Routine Oxygen Therapy [RC] Up With Assistance [RC] VTE/DVT Education [RC] .PRN Vital Signs [RC] 02,06,10,14,18,22 Resuscitation Status Routine 04/20/19 23:25 Notify Provider Vital Signs [RC] 02,06,10,14,18,22 04/20/19 23:26 Sequential Compression Device [OM.PC] Per Unit Routine 04/20/19 23:27 Antiembolic Devices [RC] 04/20/19 23:28 PT Evaluation and Treatment [CONS] Routine 04/20/19 23:29 Incentive Spirometry [RT Incentive Spirometry] [RC] 08,,,11,12,13,14,15,16, 17,18,19,20 04/20/19 23:30 Dextrose 5%-0.45% NaCl [Dextrose 5%-1/2 NS] 1,000 ml IV ASDIRECTED 04/20/19 23:31 Dietary Supplements [RC] 04/20/19 23:39 Hemoccult [Fecal Occult Bld Diag Imm] [RC] ASDIRECTED 04/20/19 23:44 Cardiac Monitoring [] 02,06,10,14,18,22 04/21/19 07:00 Ipratropium [Atrovent] 0.5 mg NEB Q8HRRT 04/21/19 08:00 EKG 12 Lead [EKG Documentation Completion] [RC] ROUTINE Magnesium Chloride [Mag-64] 64 mg PO DAILY 04/21/19 20:00 Azithromycin [Zithromax] 500 mg PO DAILY@1999 Famotidine [Pepcid] 20 mg PO BEDTIME Simvastatin [Zocor] 20 mg PO BEDTIME cefTRIAXone [Rocephin] 1 gm IVPUSH DAILY@199904/22/19 08:00 Ferrous Sulfate 325 mg PO WITHBREAKFAST 04/22/19 11:00 Omeprazole 20 mg PO DAILY - Assessment Assessment:: 1. Pneumonia: lungs sounds improved, fever is low grade and stable; continue rocephin and azithromycin po 2. Anemia: hb dropped another gram; suspect dilution with Fe def anemia that occurred over the last year . Plan: d/c Iv as he is taking po well, continue with acid blockers; continue observation in hospital until we know Hb is stabilized;start Fe; check all stools for blood 3. Abnormal EKG: Trop neg; EKG stable, asx. D/C monitor, report of Afib on monitor may be in error 4. Weakness: Pt consult Dg: up and walking to day with help 5. Low MG: continue supplement - Plan Plan:: Impression 1. Low-grade fever and weakness: This abnormal lung examination suspect he has pneumonia again planning. Patient has received Rocephin and azithromycin will continue with same for now and follow carefully. Physical therapy will be started as soon as possible 2. Abnormal EKG: We'll recheck EKG in the morning and recheck troponin, observation nurse in the meantime 3. Decreased hemoglobin. We'll recheck in the morning, check all stools for blood, iron studies. As the patient has a history of hematemesis and diverticuli noted to hold off on any heparin for now for DVT prophylaxis also we 'll hold his aspirin . 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 Will restart PPI as he was not taking this at home. 4. History of hyperlipidemia: Continue with Zocor 5. COPD: We do not have Spiriva on formulary won't substitute Atrovent. Also will try to ensure he has an incentive spirometer. 6. Hypomagnesemia: Replace magnesium 7. Baseline weakness and unsteadiness: PT consultation
[2019-04-21] MEDS ORDERED: Simvastatin 20 MG Tab PO SCH (20:00)
[2019-04-21] MEDS ORDERED: cefTRIAXone 1 GM Vial IVPUSH SCH (20:00)
[2019-04-21] MEDS ORDERED: Famotidine 20 MG Tab PO SCH (20:00)
[2019-04-21] MEDS ORDERED: Azithromycin 250 MG Tab PO SCH (20:00)
[2019-04-22] MEDS: Ipratropium 0.02% 0.5 MG/2.5 ML Neb Soln NEB SCH (07:10)
[2019-04-22] MEDS: Magnesium Chloride 64 MG Tab.ER PO SCH (07:26)
[2019-04-22] MEDS ORDERED: Ferrous Sulfate 325 MG Tab PO SCH (08:00)
[2019-04-22 10:27] VITALS: BP 121/66; PULSE 86
[2019-04-22] MEDS ORDERED: Omeprazole 20 MG Cap.CR PO SCH (11:00)
--- NOTE | 2019-04-22 12:14 | PCM.DCSUM1 ---
Discharge Summary - Hospital Course Free Text/Narrative:: Discharge Diagnoses: -Exacerbation of COPD -Iron deficiency anemia with fatigue -Hypomagnesemia -Diverticulosis, presumed low-grade bleeding -Paroxysmal atrial fibrillation, inactive -Peripheral vascular disease -Hearing loss -Impaired fasting glucose Reason for Admission: Weakness, cough, low grade fever for one day. Hx of mild COPD, previous Rx for exacerbations. Hx GI bleed one year ago but had apparently stopped taking his Zantac. Initial Findings: Hb 10.3, microcytosis, MCV 71.6; ABGs OK; Na+ 143, K+ 3.8, Ca++ 8.0 (low), magnesium 1.6 (low), creatinine 1.1 (GFR > 60); iron saturation 9.2%. By time of admission he was afebrile. Lung exam shows rales at both bases. Heart sounds normal and regular, NB Hx of paroxysmal atrial fibrillation. Treatment and Course in Hospital: Because of fever and cough, HX of COPD, in spite of negative CXR he was started on oral azithromycin and IV Rocephin, until time of D/C. He was started on oral Mg++, omeprazole, iron. His hemoglobin dropped from 10.3 down to 9.5, probably from getting IV fluid. Stool occult blood was negative. He improved and by the day of discharge was able to walk unassisted with his walker, although with exertional dyspnea. Condition on Discharge: -Still exertional dyspnea -Heart sounds regular and normal -Lungs clear, no basilar rales now -No ankle edema, alert and says he feels better Discharge Plan: -Continue the magnesium that was started in Hospital -Get back on Prilosec 20 mg daily -Finish 3 days of azithromycin and take Ceftin 250 mg BID 4 more days -Start iron sulfate 325 mg daily -Per request of [facility], because he might not be taking his meds as Rxd, return for Occupational Therapy eval in 2 days to assess for his ability to take his own meds -No colonoscopy planned now since he had one 6 years ago which only showed diverticulosis -No EGD planned now but that should be reconsidered if his iron deficiency anemia doesnt improve promptly -Stop aspirin Diagnosis: Stroke: No Modified Breathitt Scale: Mod.Disablility Requiring Some Help,Able to Walk Without Assistance Modified Scarlet Scale Score: 3 - Discharge Data Discharge Date: 04/22/19 Discharge Disposition: DC/Tfer to Other 70 Condition: Good - Referral to Home Health Primary Care Physician: Walter Mackey MD - Patient Summary/Data Consults: Consultations 04/20/19 23:28 PT Evaluation and Treatment [CONS] Routine 04/22/19 09:53 Consult to Occupational Therapy [OT Evaluation and Treatment] [CONS] Routine - Discharge Plan *PRESCRIPTION DRUG MONITORING PROGRAM REVIEWED*: Not Applicable *COPY OF PRESCRIPTION DRUG MONITORING REPORT IN PATIENT ERVIN: Not Applicable Prescriptions/Med Rec: Azithromycin [Zithromax] 500 mg PO DAILY@1999 3 Days #3 tablet Cefuroxime [Ceftin] 250 mg PO BID 4 Days #8 tablet Ferrous Sulfate 325 mg PO WITHBREAKFAST #30 tablet Magnesium Chloride [Mag-64] 64 mg PO DAILY #30 tab.er Omeprazole 20 mg PO DAILY@1100 30 Days cap.cr Home Medications: Home Meds Multivitamin [Daily Multiple Vitamin] 1 tab PO DAILY 05/15/14 [History] Simvastatin [Zocor] 20 mg PO BEDTIME 05/15/14 [History] Tiotropium [Spiriva HandiHaler] 18 mcg INH DAILY 05/15/14 [History] Omeprazole 1 cap PO DAILY 04/20/19 [History] Tamsulosin HCl 1 cap PO DAILY 04/20/19 [History] Azithromycin [Zithromax] 500 mg PO DAILY@1999 3 Days #3 tablet 04/22/19 [Rx] Cefuroxime [Ceftin] 250 mg PO BID 4 Days #8 tablet 04/22/19 [Rx] Ferrous Sulfate 325 mg PO WITHBREAKFAST #30 tablet 04/22/19 [Rx] Ipratropium [Atrovent] 0.5 mg NEB Q8HRRT neb 04/22/19 [Rx] Magnesium Chloride [Mag-64] 64 mg PO DAILY #30 tab.er 04/22/19 [Rx] Omeprazole 20 mg PO DAILY@1100 30 Days cap.cr 04/22/19 [Rx] Patient Handouts: Famotidine tablets or gelcaps, Ceftriaxone injection, Azithromycin oral suspension (immediate release) Forms: ED Department Discharge Referrals: Walter Mackey MD [Primary Care Provider] - 04/29/19 10:00 am (You have a follow up appt. with Dr. Luke Mackey on April 29, 2019 at 10AM---[facility]) - Discharge Summary/Plan Comment DC Time >30 min.: No - Patient Data Vitals - Most Recent: Last Vital Signs Temp 36.4 C 04/22/19 10:00 Pulse 86 04/22/19 10:00 Resp 16 04/22/19 10:00 BP 121/66 04/22/19 10:00 Pulse Ox 93 L 04/22/19 10:00 Weight - Most Recent: 104.326 kg (Pressure was 124/70 without any orthostatic changes on the floor) I&O - Last 24 hours: Intake & Output 04/21/19 04/22/19 04/22/19 22:59 06:59 14:59 Intake Total 300 200 Output Total 800 700 Balance -500 -700 200 Lab Results - Last 24 hrs: Laboratory Results - last 24 hr 04/22/19 Range/Units 06:57 WBC 8.5 (4.0-10.0) x10^3/uL RBC 4.23 L (4.5-6.0) x10^6/uL Hgb 9.5 L (14.0-18.0) g/dL Hct 30.4 L (40.0-52.0) % MCV 71.9 L (78.0-93.0) fL MCH 22.5 L (26.0-32.0) pg MCHC 31.3 L (32.0-36.0) g/dL RDW Coeff of German 20.9 H (10.0-15.0) % Plt Count 229 (130-400) x10^3/uL SPENCER Results - Last 24 hrs: Microbiology 04/20/19 20:54 Aerobic Blood Culture - Preliminary Blood - Venous NO GROWTH AFTER 1 DAY Anaerobic Blood Culture - Final 04/20/19 21:05 Aerobic Blood Culture - Preliminary Blood - Venous - Lab Draw NO GROWTH AFTER 1 DAY Anaerobic Blood Culture - Preliminary NO GROWTH AFTER 1 DAY Med Orders - Current: Current Medications Azithromycin (Zithromax) 500 mg PO DAILY@1999 [facility] Last Admin: 04/21/19 20:05 Dose: 500 mg Cefuroxime Axetil (Ceftin) 250 mg PO BID [facility] Stop: 04/26/19 20:01 Famotidine (Pepcid) 20 mg PO BEDTIME [facility] Last Admin: 09/15/19 20:05 Dose: 20 mg Ferrous Sulfate (Ferrous Sulfate) 325 mg PO WITHBREAKFAST [facility] Last Admin: 04/22/19 07:26 Dose: 325 mg Dextrose/Sodium Chloride (Dextrose 5%-1/2 Ns) 1,000 mls @ 100 mls/hr IV ASDIRECTED [facility] Last Admin: 04/21/19 02:50 Dose: 100 mls/hr Ipratropium [place] (Atrovent) 0.5 mg NEB Q8HRRT [facility] Last Admin: 04/22/19 07:10 Dose: 0.5 mg Magnesium Chloride (Mag-64) 64 mg PO DAILY [facility] Last Admin: 04/22/19 07:26 Dose: 64 mg Multivitamins/Minerals (Thera M Plus) 1 tab PO DAILY [facility] Omeprazole (Omeprazole) 20 mg PO DAILY@1100 [facility] Last Admin: 04/22/19 11:21 Dose: 20 mg Simvastatin (Zocor) 20 mg PO BEDTIME [facility] Last Admin: 04/21/19 20:05 Dose: 20 mg Sodium Chloride (Saline Flush) 10 ml FLUSH ASDIRECTED PRN PRN Reason: Keep Vein Open Last Admin: 04/21/19 20:05 Dose: 10 ml Tamsulosin HCl (Flomax) 0.4 mg PO DAILY [facility] Discontinued Medications Ceftriaxone Sodium (Rocephin) 2 gm IVPUSH STAT ONE Stop: 04/20/19 21:18 Last Admin: 04/20/19 21:26 Dose: 2 gm Ceftriaxone Sodium (Rocephin) 1 gm IVPUSH DAILY@2000 [facility] Last Admin: 04/21/19 20:04 Dose: 1 gm Azithromycin 500 mg/ Sodium (Chloride) 250 mls @ 250 mls/hr IV STAT ONE Stop: 04/20/19 22:17 Last Admin: 04/20/19 21:28 Dose: 250 mls/hr Omeprazole (Omeprazole) 20 mg PO ACBREAKFAST [facility] Last Admin: 04/21/19 07:05 Dose: 20 mg
[2019-04-22] MEDS ORDERED: Simvastatin 20 MG Tab PO SCH (20:00)
[2019-04-23] MEDS ORDERED: Non-Formulary Medication 1 Each (Tiotropium [Spiriva Handihaler] 18 MCG) INH SCH (08:00)
[2019-04-23] MEDS ORDERED: Tamsulosin 0.4 MG Cap.ER PO SCH (08:00)
[2019-04-23] MEDS ORDERED: Multivitamins with Iron/Calcium/Folic Acid/Minerals Tab PO SCH (08:00)
[2019-04-23] MEDS ORDERED: Omeprazole 20 MG Cap.CR PO SCH (08:00)
[2019-04-23] MEDS ORDERED: Cefuroxime 250 MG Tab PO SCH (08:00)
== END 2019-04-22 12:35 | disposition other institution (70) | DRG 193 ==
LOC: VM.ED 20:49 → VM.MS 22:23
PROVIDERS: ADMIT Internal Medicine; ATTEND Family Medicine
DX: J18.9 Pneumonia, unspecified organism (principal); K57.31 Diverticulosis of large intestine without perforation or abscess with bleeding; R09.02 Hypoxemia; R53.1 Weakness; R06.02 Shortness of breath; J44.1 Chronic obstructive pulmonary disease with (acute) exacerbation; J44.9 Chronic obstructive pulmonary disease, unspecified; I48.91 Unspecified atrial fibrillation; J44.0 Chronic obstructive pulmonary disease with (acute) lower respiratory infection; Z79.82 Long term (current) use of aspirin; D50.9 Iron deficiency anemia, unspecified; E83.42 Hypomagnesemia; I48.0 Paroxysmal atrial fibrillation; I73.9 Peripheral vascular disease, unspecified; H91.90 Unspecified hearing loss, unspecified ear; R73.01 Impaired fasting glucose; E78.00 Pure hypercholesterolemia, unspecified; Z96.653 Presence of artificial knee joint, bilateral; M19.90 Unspecified osteoarthritis, unspecified site; Z96.641 Presence of right artificial hip joint; R94.31 Abnormal electrocardiogram [ECG] [EKG]; E78.5 Hyperlipidemia, unspecified; Z79.899 Other long term (current) drug therapy; Z98.42 Cataract extraction status, left eye; Z98.41 Cataract extraction status, right eye; Z85.828 Personal history of other malignant neoplasm of skin; Z90.49 Acquired absence of other specified parts of digestive tract
CPT/HCPCS: 36415; 36600; 51701; 71045; 80053; 81001; 82274; 82803; 83540; 83550; 83605; 83735; 83880; 84100; 84484; 85025; 85027; 85610; 86140; 87040; 93005; 94640; 94760; 96365; 96375; 97162-GP; 99284-GF; 99285-25; A9270-GY; J0456; J0696; J7042; J7050